=== PATIENT | male | born 2000 | race Caucasian/White ===

== ENCOUNTER 2018-05-28 15:56 | Emergency (ER) | payer BC ==
[~2018-05-28] VITALS: Ht 185.4 cm; Wt 81.6 kg
[2018-05-28] MEDS ORDERED: MULTIVITAMINS1 EAC8 ORAL (16:06)
[2018-05-28 16:16] VITALS: BP 120/67
--- NOTE | 2018-05-28 16:25 | Emergency Room Report ---
History of Present Illness General Chief Complaint: Flu Like Symptoms Source: Patient Present Illness HPI 17-year-old male patient presents ER with multiple complaints. Past 4 days. Reports swollen lymph nodes, cough, fever and sweats. Reports he took his temperature at home and it was 100. Reports cough is usually dry but has had some yellow phlegm. Denies hemoptysis. Reports sore throat during this time. Denies chest pain, shortness of breath, abdominal pain, other acute symptoms. Denies diarrhea. Reports she was seen by a doctor at his sober living house earlier today and given a steroid orally for symptom relief. Denies recent drug use. 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 Denies smoking or alcohol use. Reports hx of thyroid problems. Allergies: Coded Allergies: No Known Allergies (Unverified , 05/28/18) Patient History Past Medical History: see triage record Reviewed Nursing Documentation: PMH: Agreed; PSxH: Agreed Nursing Documentation-PMH Past Medical History: No History, Except For Review of Systems All Other Systems: negative except mentioned in HPI Physical Exam Vital Signs Date Time Temp Pulse Resp B/P (MAP) Pulse Ox O2 Delivery O2 Flow Rate FiO2 05/28/18 16:03 99.1 93 16 120/67 96 Room Air 99.1 Sp02 EP Interpretation: reviewed, normal General Appearance: well appearing, no apparent distress, alert, GCS 15, non- toxic Head: normocephalic, atraumatic Eyes: bilateral eye normal inspection, bilateral eye PERRL ENT: hearing grossly normal, normal pharynx, no angioedema, normal voice, TMs + canals normal, uvula midline, moist mucus membranes, pharyngeal erythema, other - no tonsillar exudates, uvula midline, no stridor Neck: full range of motion, no meningismus, no bony tend, thyromegaly Respiratory: lungs clear, normal breath sounds, no rhonchi, no respiratory distress, no accessory muscle use, no wheezing, speaking full sentences Cardiovascular #1: regular rate, rhythm, no edema Gastrointestinal: non tender, soft, no mass, non-distended, no guarding, no rebound Musculoskeletal: back normal, digits/nails normal, gait/station normal, normal range of motion, non-tender Neurologic: alert, oriented x3, responsive, motor strength/tone normal, sensory intact Psychiatric: mood/affect normal Skin: no rash Lymphatic: adenopathy - cervical, TTP Medical Decision Making PA Attestation Dr. Cooper is my supervising Physician whom patient management has been discussed with. Diagnostic Impression: Primary Impression: Pharyngitis ER Course Pt presents to ED c/o sore throat, lymph node swelling, flulike symptoms. DDX considered but are not limited to pharyngitis, laryngitis, URI, peritonsillar abscess, tonsillitis. Low suspicion for peritonsillar abscess, no neck stiffness, no hot potato voice , no stridor. Does not require imaging at this time. VITAL SIGNS are WNL, patient is afebrile. ER COURSE: provide with viscous lidocaine in ER, patient declined ibuprofen. Patient afebrile. Pharyngeal erythema, no exudates, lymphadenopathy, or provide antibiotic coverage for pharyngitis due to physical exam and length of symptoms. Salt water gargles Drink plenty of fluids. Tylenol for pain and fever symptoms followup with PCP and mannequin mounter for management of thyroid. DISCHARGE: Rx provided for Amoxicillin At this time pt is stable for d/c to home. Patient is resting comfortably, in no acute distress, nontoxic appearing, talking without difficulty. Will provide with patient care instructions and any necessary prescriptions. Patient to take medication as instructed. Care plan and follow-up instructions provided. Patient questions asked and answered. Patient instructed to follow-up with primary care provider in 3 - 5 days. ER precautions given. Patient instructed to return to ER immediately for any new or worsening of symptoms including but not limited to intractable vomiting, difficulty breathing, inability to eat. - Please note that this Emergency Department Report was dictated using [employer]operating systems programmer technology software, occasionally this can lead to erroneous entry secondary to interpretation by the dictation equipment. Last Vital Signs Date Time Temp Pulse Resp B/P (MAP) Pulse Ox O2 Delivery O2 Flow Rate FiO2 05/28/18 16:03 99.1 93 16 120/67 96 Room Air 99.1 Disposition: HOME, SELF-CARE Condition: Stable Scripts Amoxicillin* (AMOXIL*) 500 Mg Capsule 500 MG ORAL EVERY 8 HOURS for 7 Days, #21 CAP Prov: Aric Sams 05/28/18 Patient Instructions: Pharyngitis, [id number] Additional Instructions: Followup with primary care provider in 3 -5 days. Salt water gargles Rx provided for Tylenol for pain and fever symptoms Drink plenty of water. Take medications as directed. Patient questions asked and answered. ER precautions given, patient instructed to return to ER immediately for any new or worsening of symptoms including but not limited to intractable vomiting, difficulty breathing, inability to eat. Aric Sams May 28, 2018 16:25
[2018-05-28] MEDS ORDERED: Lidocaine 2% Visc 15ml soln ORAL ONE (16:30)
[2018-05-28] MEDS ORDERED: AMOXICILLIN500 MG ORAL (16:48)
[2018-05-28 16:50] VITALS: BP 120/67
== END 2018-05-28 17:00 | disposition home or self-care (01) ==
LOC: EMR 16:35
DX: J02.9 Acute pharyngitis, unspecified (principal)
CPT/HCPCS: 99283

== ENCOUNTER 2018-06-13 13:55 | Emergency (ER) | payer BC ==
[~2018-06-13] VITALS: Ht 185.4 cm; Wt 81.6 kg
[~2018-06-13 13:55] MED LIST: AMOXICILLIN500 MG ORAL; MULTIVITAMINS1 EAC8 ORAL
--- NOTE | 2018-06-13 14:20 | Emergency Room Report ---
History of Present Illness General Chief Complaint: Chest Pain Source: Patient Present Illness HPI 17-year-old male with no sig pmhx, p/w chest pain for 2 months. Chest pain occurs randomly. Localized to substernal area, no radiation to back or other areas, sharp in nature, gradual in onset, lasts only a minute or 2. few episodes/day. Nonexertional, no SOB. Also states that he has intermittent palpitations that can sometimes waking him up at night. Denies fever, chills, cough, abd pain, recent viral illness. Denies trauma. Denies cardiac history, smoking, or family history of cardiac disease at a young age. Denies history of PE/DVT, no recent surgeries, prolonged immobilzation, malignancy, or use of OCPs/HRT. Patient admits that he has been going through some recent stressors and suffers from anxiety Allergies: Coded Allergies: KETOROLAC (Verified Allergy, Unknown, 06/13/18) Patient History Past Medical History: see triage record Past Surgical History: none Pertinent Family History: none Reviewed Nursing Documentation: PMH: Agreed; PSxH: Agreed Review of Systems All Other Systems: negative except mentioned in HPI Physical Exam Vital Signs Date Time Temp Pulse Resp B/P (MAP) Pulse Ox O2 Delivery O2 Flow Rate FiO2 06/13/18 13:59 98.3 67 18 112/65 96 Room Air 98.2 Sp02 EP Interpretation: reviewed, normal General Appearance: normal inspection, well appearing, no apparent distress, alert, GCS 15, non-toxic Head: normocephalic, atraumatic Eyes: bilateral eye normal inspection, bilateral eye PERRL, bilateral eye EOMI ENT: normal ENT inspection, normal pharynx, normal voice, moist mucus membranes Neck: normal inspection, full range of motion, supple Respiratory: normal inspection, lungs clear, normal breath sounds, no respiratory distress, no retraction, no wheezing, speaking full sentences, chest symmetrical Cardiovascular #1: normal inspection, regular rate, rhythm, no edema, normal capillary refill Cardiovascular #2: 2+ radial (R), 2+ radial (L) Gastrointestinal: normal inspection, non tender, soft, non-distended, no guarding Musculoskeletal: normal inspection, back normal, normal range of motion, non- tender Neurologic: normal inspection, alert, oriented x3, responsive, motor strength/ tone normal, sensory intact, normal gait, speech normal Psychiatric: normal inspection, judgement/insight normal, memory normal Skin: normal inspection, normal color, no rash, warm/dry, well hydrated, normal turgor Medical Decision Making Diagnostic Impression: Primary Impression: Chest pain ER Course 17-year-old male with no sig pmhx p/w chest pain for 2 months, intermittent DDX: Musculoskeletal CP/costochondritis vs. pneumothorax vs. gastritis/GERD PE less likely given history and physical examination, not hypoxic/tachycardic, no risk factors, PERC negative. ACS less likely given age/history Plan: Patient is pain-free at this time, but we will perform EKG, CXR Anticipate DC home as patient appears clinically well. ER course: Patient remains well appearing in ED. on a monitor, no abnormalities. he has felt better Disposition: Patient will be discharged to home Strict precautions discussed with patient on when to emergently return to the ED : this includes worsening/severe chest pain, palpitations, shortness of breath, syncopal episodes, fever or chills, which may indicate severe illness. Patient verbalized understanding. Patient instructed to follow up with their PMD within the next 2 days. Patient agrees with plan. Please note that this Emergency Department Report was dictated using [employer] set[employer] safety stitch technology software, occasionally this can lead to erroneous entry secondary to interpretation by the dictation equipment. EKG Diagnostic Results EP Interpretation: Yes Rate: bradycardia, 56 Rhythm: NSR ST Segments: No acute changes ASA given to patient: no Rhythm Strip EP Interpretation: Yes Rate: 65 Rhythm: NSR, no PVCs, no ectopy Chest X-ray CXR: Ordered: Yes 1 view Indication: Chest pain EP interpretation: Yes Interpretation: No consolidation, no effusion, no PTX, no acute cardiopulmonary disease Impression: No acute disease Electronically signed by Thompson Gill MD Last Vital Signs Date Time Temp Pulse Resp B/P (MAP) Pulse Ox O2 Delivery O2 Flow Rate FiO2 06/13/18 13:59 98.3 67 18 112/65 96 Room Air 98.2 Disposition: HOME, SELF-CARE Condition: Stable Patient Instructions: Nonspecific Chest Pain Additional Instructions: Please see your doctor in 2 days without fail Thompson Gill M.D. Jun 13, 2018 14:20
[2018-06-13 14:35] VITALS: BP 101/55
[2018-06-13 14:52] VITALS: BP 105/98
--- NOTE | 2018-06-13 15:29 | Diagnostic Imaging Report ---
Indication: Chest pain Technique: One view of the chest Comparison: none Findings: Lungs and pleural spaces are clear. Heart size is normal Impression: No acute process
--- NOTE | 2018-06-14 18:00 | Cardiology Report ---
APPROVED REPORT EKG Measurement Heart [id number] Sinus bradycardia with sinus arrhythmia Otherwise normal ECG
== END 2018-06-13 14:52 | disposition home or self-care (01) ==
LOC: EMR 14:52
DX: R07.9 Chest pain, unspecified (principal); Z88.6 Allergy status to analgesic agent
CPT/HCPCS: 71045; 93005; 99283